=== PATIENT | female | born 1970 | race Caucasian/White ===

== ENCOUNTER 2024-03-17 09:05 | Observation (INO) ==
[2024-03-17 09:59] LABS: Urine Appearance Clear; Urine Bilirubin Negative (Negative); Urine Blood Negative (Negative); Urine Color Yellow; Urine Glucose Negative (Negative); Urine Ketones 2+ (Negative); Urine Nitrite Negative (Negative); Urine Protein Trace (Negative); Urine Urobilinogen 1+ (Negative)
[2024-03-17 11:07] LABS: ABS Monocytes 0.4 10^3/uL (0.0-0.9); ABS Neutrophils 6.8 10^3/uL (1.5-7.6); Eosinophil % 0.1 %; Hemoglobin 14.7 g/dL (11.5-14.3); Lymphocyte % 12.5 %; Mean Corpuscular Hemoglobin 28.5 pg (27-33); Mean Corpuscular Hgb Conc 34.2 g/dL (31-36); Mean Corpuscular Volume 83.2 fL (80-97); Mean Platelet Volume 8.7 fL (7.5-11.2); Nucleated Red Blood Cells % 0.1 %/100WBC (0.0-0.8); Platelet Count 260 10^3/uL (150-450); Red Blood Count 5.18 10^6/uL (3.63-4.92); Red Cell Distribution Width 13.8 % (12-17); White Blood Count 8.2 10^3/uL (3.8-11.8)
[2024-03-17] MEDS: Ondansetron 4 mg VIAL 2 MG/ML 2 ml VIAL IV ONE (11:32)
[2024-03-17] MEDS: Lactated Ringers 1000 ml BAG 1,000 ML IV ONE ×2 (11:32→18:37)
[2024-03-17 12:10] LABS: C Reactive Protein 8.21 mg/L (<8.01); Calcium 9.5 mg/dL (8.6-10.3); Creatinine, Serum 0.7 mg/dL (0.51-0.95); eGFR CKD-EPI 102.1 (>60)
[2024-03-17 12:26] LABS: Albumin 4.3 g/dL (3.2-5.2); Albumin/Globulin Ratio 1.4 (1-3); Total Bilirubin 0.9 mg/dL (0.2-1.0); Total Protein 7.3 g/dL (6.4-8.9)
[2024-03-17 14:12] LABS: HCG Pregnancy 2.68 mIU/mL
[2024-03-17] MEDS: Iohexol 300 (CONTRAST) 10 ML SDV IV ONE (15:00)
[2024-03-17] MEDS: Piperacillin/Tazobac 3.375 BAG 3.375 GM/100 ML BAG IV ONE (17:36)
[2024-03-17] MEDS ORDERED: oxyCODONE/Acetamin 5/325 mg TAB PO PRN (18:23)
[2024-03-17] MEDS ORDERED: Calcium Carb (TUMS) 500 mg CHEW TAB PO PRN (18:26)
[2024-03-17] MEDS: NS 0.9% 1000 ml BAG 1,000 ML IV SCH (18:54)
[2024-03-17] MEDS: HYDROmorphone 1 MG/1 ML SYRINGE IV SLOW PU PRN (19:01)
[2024-03-17] MEDS: Ondansetron 4 mg VIAL 2 MG/ML 2 ml VIAL IV PRN (19:01)
[2024-03-17] MEDS: ZOSYN 3.375 GM Q8H per EXTENDED INFUSION IV SCH (21:17)
[2024-03-17] MEDS ORDERED: Piperacillin/Tazobac 3.375 BAG 3.375 GM/100 ML BAG IV SCH (23:00)
[2024-03-18] MEDS: ZOSYN 3.375 GM Q8H per EXTENDED INFUSION IV SCH (05:51)
[2024-03-18] MEDS: HYDROcodone/ACETAMIN 5/325 mg TAB PO PRN (05:55)
[2024-03-18 06:48] LABS: ABS Eosinophils 0.1 10^3/uL (0.0-0.5); ABS Lymphocytes 1.3 10^3/uL (1.0-4.8); ABS Monocytes 0.5 10^3/uL (0.0-0.9); ABS Neutrophils 4.8 10^3/uL (1.5-7.6); Eosinophil % 0.9 %; Hematocrit 38.2 % (35-45); Hemoglobin 12.9 g/dL (11.5-14.3); Lymphocyte % 19.3 %; Mean Corpuscular Hemoglobin 28.4 pg (27-33); Mean Corpuscular Hgb Conc 33.8 g/dL (31-36); Mean Corpuscular Volume 84.1 fL (80-97); Mean Platelet Volume 8.9 fL (7.5-11.2); Platelet Count 193 10^3/uL (150-450); Red Blood Count 4.54 10^6/uL (3.63-4.92); Red Cell Distribution Width 13.6 % (12-17); White Blood Count 6.7 10^3/uL (3.8-11.8)
[2024-03-18 07:06] LABS: Albumin 3.7 g/dL (3.2-5.2); Albumin/Globulin Ratio 1.5 (1-3); C Reactive Protein 41.96 mg/L (<8.01); Calcium 8.7 mg/dL (8.6-10.3); Creatinine, Serum 0.68 mg/dL (0.51-0.95); Globulin 2.5 g/dL (2-4); Potassium 4.2 mmol/L (3.5-5.0); Total Bilirubin 0.8 mg/dL (0.2-1.0); Total Protein 6.2 g/dL (6.4-8.9); eGFR CKD-EPI 102.8 (>60)
[2024-03-18] MEDS ORDERED: Dexamethasone IV 4 MG/ML VIAL 1 ml VIAL ONE ×2 (12:57→15:41)
[2024-03-18] MEDS ORDERED: fentaNYL 100 mcg/2 ml 50 MCG/ML VIAL IV PRN (12:57)
[2024-03-18] MEDS ORDERED: Lidocaine 2% PF 5 ML VIAL ONE ×2 (12:57→15:41)
[2024-03-18] MEDS ORDERED: Ondansetron 4 mg VIAL 2 MG/ML 2 ml VIAL IV PRN (12:57)
[2024-03-18] MEDS ORDERED: Midazolam 2 mg/2 ml VIAL 1 mg/ml 2 ml VIAL (2 mg) ONE ×2 (12:57→15:41)
[2024-03-18] MEDS ORDERED: Rocuronium 50 mg VIAL 10 mg/ml 5 ml VIAL (50 mg) ONE ×2 (12:57→15:41)
[2024-03-18] MEDS ORDERED: Propofol 10 MG/ML 20 ML BTL ONE ×2 (12:57→15:41)
[2024-03-18] MEDS ORDERED: fentaNYL 250 mcg/5 ml 50 MCG/ML 5 ml VIAL (250 MCG) ONE ×2 (12:57→15:41)
[2024-03-18] MEDS ORDERED: Naloxone 0.4 mg VIAL 0.4 mg/ml 1 ml VIAL IV PRN (12:57)
[2024-03-18] MEDS ORDERED: Ondansetron 4 mg VIAL 2 MG/ML 2 ml VIAL ONE ×2 (12:57→15:41)
[2024-03-18] MEDS ORDERED: NS 0.45% 1000 ml BAG 1,000 ML IV SCH (13:00)
[2024-03-18] MEDS: Scopolamine 1 mg/72hr PATCH TRANSDERM ONE (16:58)
[2024-03-18] MEDS: Buffered Lidocaine 1% SYRIN 1 ml INTRADERM ONE (16:58)
[2024-03-18] MEDS: Acetaminophen IV 1 GM/100ML 1,000 MG/100 ML BAG IV ONE (16:58)
[2024-03-18] MEDS: Lactated Ringers 1000 ml BAG 1,000 ML IV SCH (16:59)
[2024-03-19] MEDS ORDERED: Bupivacaine 0.25% w/EPI 10 ML SDV ONE (07:48)
[2024-03-19] MEDS ORDERED: Iohexol 180 (CONTRAST) 10 ML SDV IV ONE (07:48)
[2024-03-19] MEDS ORDERED: fentaNYL 100 mcg/2 ml 50 MCG/ML VIAL ONE (08:09)
[2024-03-19] MEDS ORDERED: Midazolam 2 mg/2 ml VIAL 1 mg/ml 2 ml VIAL (2 mg) ONE (08:09)
[2024-03-19] MEDS ORDERED: HYDROmorphone 0.5 MG/0.5 ML SYRINGE ONE (08:36)
[2024-03-19] MEDS ORDERED: Naloxone 0.4 mg VIAL 0.4 mg/ml 1 ml VIAL IV PRN (09:57)
[2024-03-19] MEDS ORDERED: fentaNYL 100 mcg/2 ml 50 MCG/ML VIAL IV PRN (09:57)
[2024-03-19] MEDS ORDERED: NS 0.45% 1000 ml BAG 1,000 ML IV SCH (10:00)
[2024-03-19] MEDS ORDERED: Propofol 10 MG/ML 20 ML BTL ONE (10:02)
[2024-03-19] MEDS ORDERED: Dexamethasone IV 4 MG/ML VIAL 1 ml VIAL ONE (10:02)
[2024-03-19] MEDS ORDERED: Ondansetron 4 mg VIAL 2 MG/ML 2 ml VIAL ONE ×2 (10:02→10:46)
[2024-03-19] MEDS ORDERED: Succinylcholine 200 mg VIAL 20 mg/ml 10 ml VIAL (200 mg) ONE (10:03)
[2024-03-19] MEDS ORDERED: Metoclopramide 5 MG/ML VIAL (10 mg) ONE (10:46)
[2024-03-19] MEDS: Metoclopramide 5 MG/ML VIAL (10 mg) IV PRN (10:49)
[2024-03-19] MEDS: Ondansetron 4 mg VIAL 2 MG/ML 2 ml VIAL IV PRN (10:49)
[2024-03-19] MEDS ORDERED: Acetaminophen IV 1 GM/100ML 1,000 MG/100 ML BAG IV ONE (10:53)
[2024-03-19] MEDS: Acetaminophen IV 1 GM/100ML 1,000 MG/100 ML BAG IV ONE (10:56)
[2024-03-19] MEDS: Buffered Lidocaine 1% SYRIN 1 ml INTRADERM ONE (12:26)
[2024-03-19] MEDS: Lactated Ringers 1000 ml BAG 1,000 ML IV SCH (12:28)
[2024-03-19] MEDS: Scopolamine 1 mg/72hr PATCH TRANSDERM ONE (12:35)
[2024-03-19] MEDS: Scopolamine 1 mg/72hr PATCH ONE (12:41)
[2024-03-19] MEDS ORDERED: Lidocaine 2% PF 10 ML AMP (OR) ONE (18:03)
[2024-03-20 05:40] VITALS: BP 148/74
[2024-03-20 05:50] LABS: ABS Lymphocytes 1.4 10^3/uL (1.0-4.8); ABS Monocytes 0.7 10^3/uL (0.0-0.9); ABS Neutrophils 7.5 10^3/uL (1.5-7.6); ABS Nucleated RBC 0.01 10^3/ul; Eosinophil % 0.4 %; Hemoglobin 12.5 g/dL (11.5-14.3); Lymphocyte % 14.7 %; Mean Corpuscular Hemoglobin 28.6 pg (27-33); Mean Corpuscular Hgb Conc 34.7 g/dL (31-36); Mean Corpuscular Volume 82.4 fL (80-97); Mean Platelet Volume 8.9 fL (7.5-11.2); Nucleated Red Blood Cells % 0.1 %/100WBC (0.0-0.8); Platelet Count 210 10^3/uL (150-450); Red Blood Count 4.38 10^6/uL (3.63-4.92); Red Cell Distribution Width 13.6 % (12-17); White Blood Count 9.6 10^3/uL (3.8-11.8)
[2024-03-20 06:07] LABS: Albumin 3.6 g/dL (3.2-5.2); Albumin/Globulin Ratio 1.3 (1-3); Creatinine, Serum 0.67 mg/dL (0.51-0.95); Globulin 2.7 g/dL (2-4); Potassium 4.2 mmol/L (3.5-5.0); Total Bilirubin 0.4 mg/dL (0.2-1.0); Total Protein 6.3 g/dL (6.4-8.9); eGFR CKD-EPI 103.2 (>60)
== END 2024-03-20 09:59 | disposition home or self-care (01) ==
LOC: ED 09:05 → EDHOLD 09:05 → SSU 23:30
PROVIDERS: ADMIT Surgery; ATTEND Surgery